=== PATIENT | female | born 1945 | race Hispanic/Latino ===

== ENCOUNTER 2017-05-10 18:30 | Emergency (ER) | payer BC, MEDICARE ==
[2017-05-10] MEDS ORDERED: ONDANSETRON HCL 4 MG/2 ML VIAL ONE ×2 (18:39→19:02)
[2017-05-10 18:58] LABS: BASOPHILS % (AUTO) 0.3 % (0.0-5.0); EOSINOPHILS % (AUTO) 4.8 % (0.0-8.0); HEMATOCRIT 28.2 % (36-48); LYMPHOCYTES % (AUTO) 36.6 % (21.0-51.0); MEAN CORPUSCULAR HEMOGLOBIN 34.4 pg (27.0-33.0); MEAN CORPUSCULAR HGB CONC 34.2 g/dL (32.0-36.0); MEAN CORPUSCULAR VOLUME 100.5 fL (79-99); MONOCYTES % (AUTO) 7.2 % (3.0-13.0); NEUTROPHILS % (AUTO) 51.1 % (40.0-77.0); PLATELET COUNT (AUTO) 226 K/uL (130-400); RED BLOOD CELL COUNT(AUTO) 2.81 MIL/uL (4.00-5.50); RED CELL DISTRIBUTION WIDTH 14.8 % (11.0-15.5); WHITE BLOOD COUNT (AUTO) 8.6 K/uL (4.8-10.8)
[2017-05-10] MEDS ORDERED: SODIUM CHLORIDE 0.9% 100 ML IV ONE (19:03)
[2017-05-10] MEDS ORDERED: FOSPHENYTOIN SODIUM 500 MG/10ML VIAL IJ ONE (19:03)
[2017-05-10 19:07] LABS: INR 1.04 (0.85-1.15); PARTIAL THROMBOPLASTIN TIME 28.7 SEC (26.3-35.5); PROTHROMBIN TIME 10.9 SEC (9.6-11.6)
[2017-05-10 19:12] LABS: CREATININE 1.1 mg/dL (0.5-1.5); POTASSIUM 3.2 mmol/L (3.5-5.1)
[2017-05-10 19:17] LABS: ALBUMIN 2.8 g/dL (3.5-5.0); BILIRUBIN,TOTAL 0.4 mg/dL (0.2-1.0); TOTAL PROTEIN, SERUM 10.6 g/dL (6.0-8.3)
[2017-05-10] MEDS ORDERED: MORPHINE SULFATE 4 MG/1ML SYG ONE (19:18)
[2017-05-10] MEDS ORDERED: LABETALOL HCL 5 MG/ML 20ML VIAL IV ONE (19:18)
[2017-05-10] MEDS ORDERED: FOSPHENYTOIN SODIUM 1,000 MG in SODIUM CHLORIDE 0.9% 100 ML IJ SCH (19:30)
[2017-05-10] MEDS ORDERED: PROMETHAZINE HCL 25 MG/ML 1ML AMPULE IM ONE (19:42)
== END 2017-05-10 20:32 | disposition short-term general hospital (02) ==
LOC: EDH 18:30
DX: I62.9 Nontraumatic intracranial hemorrhage, unspecified (principal); I72.8 Aneurysm of other specified arteries; R51 Headache; I10 Essential (primary) hypertension; E78.5 Hyperlipidemia, unspecified; Z88.0 Allergy status to penicillin; Z88.1 Allergy status to other antibiotic agents
CPT/HCPCS: 36415; 70450; 80053; 82550; 82948; 84484; 85025; 85610; 85730; 86850; 86900; 86901; 93005; 96365; 96374; 96375; 96376; 99291; J2270; J2405 ×2; J2550; J3490; Q2009